=== PATIENT | female | born 1975 | race Caucasian/White ===

== ENCOUNTER 2019-03-06 14:11 | Inpatient (IN) | payer MEDICAID ==
[~2019-03-06] VITALS: Ht 160 cm; Wt 90.3 kg
[2019-03-06 14:17] VITALS: Ht 160 cm; Wt 90.3 kg
--- NOTE | 2019-03-06 14:25 | NUR ---
PT BIB [facility] C/C ABD PAIN X 3 DAYS STS GETTING WORSE TODAY DR COOL AT BEDSIDE TO [facility]
--- NOTE | 2019-03-06 14:34 | NUR ---
PLEASE ENTER FULL NAMES OF PRE SALES NETWORK ENGINEER/RN Patient data collected by (PRE SALES NETWORK ENGINEER):IAN HAMILTON Assessment reviewed and completed by (RN):HUGO BAPTISTE
--- NOTE | 2019-03-06 15:11 | NUR ---
KNOWLEDGE ARCHITECT AT BEDSIDE FOR BLOOD DRAW
--- NOTE | 2019-03-06 15:32 | NUR ---
MED IV FOR NAUSEA & "12"/10 ABD PAIN & "20"/10 HEAD PAIN.
[2019-03-06 15:33] LABS: PLATELET COUNT 343 x10^3mcL (130-400)
[2019-03-06 15:42] LABS: CALCIUM 9.2 mg/dL (8.5-10.1); CARBON DIOXIDE 20.5 mmol/L (21-32); CHLORIDE SERUM 105 mmol/L (98-107); CREATININE SERUM 0.7 mg/dL (0.6-1.0); GFR1 > 60 mL/min; GLUCOSE SERUM 95 mg/dL (74-106); SODIUM SERUM 137 mmol/L (136-145)
[2019-03-06 15:47] LABS: ALKALINE PHOSPHATASE 216 U/L (46-116); ALT/SGPT 102 U/L (14-59); AST/SGOT 41 U/L (15-37); BILIRUBIN TOTAL 0.99 mg/dL (0.20-1.00); TOTAL PROTEIN, SERUM 7.2 g/dL (6.4-8.2)
[2019-03-06 15:53] LABS: ALBUMIN 2.9 g/dL (3.4-5.0)
[2019-03-06 15:59] LABS: BAND NEUTROPHIL 10 % (0-10); BASOPHIL 0 % (0-2); METAMYELOCTE 1 % (0-2); MONOCYTE 7 % (0-7); MYELOCYTE 1 % (0-2); PLATELET MORPHOLOGY PLATELETS NORMAL; SEGMENTED NEUTROPHILS 76 % (37-75); rbc morphology (normal/abnorm) NORMAL (NORMAL)
--- NOTE | 2019-03-06 16:00 | NUR ---
TAKEN TO RADIOLOGY FOR CT
--- NOTE | 2019-03-06 16:17 | NUR ---
BACK FROM CT
--- NOTE | 2019-03-06 16:38 | NUR ---
PT SLEEPING AT THIS TIME
--- NOTE | 2019-03-06 17:27 | NUR ---
STARTED ON IV ATB
--- NOTE | 2019-03-06 17:55 | NUR ---
MED PER ORDER FOR NAUSEA & "20"/10 HEAD PAIN & "12"/10 ABD PAIN.
[2019-03-06 18:20] LABS: PHOSPHOROUS 2.6 mg/dL (2.5-4.9)
[2019-03-06 19:39] VITALS: BP 136/57
--- NOTE | 2019-03-06 19:50 | NUR ---
RECEIVED AND SEEN PT IN BED ASLEEP BUT EASILY AROUSABLE.C/O PAIN ON HER LOWER STOAMCH AREA AND MIGRAINE. MEDICATED NORCO FOR PAIN ORDERED. GIVEN 1L BOLUS ORDERED. V/S WERE STABLE. NO DISTRESS NOTED.IV SITE PATENT AND INTACT. BED IN LOWEST POSITION,CALL LIGHT WITHIN REACH. WILL CONTINUE TO MONITOR.
--- NOTE | 2019-03-06 19:54 | NUR ---
This patient was admmitted at 6:30 pm in Telemetry. Patient presented with chief complaints of frontal migraine and infected pubis which is oozing. Pain level is 10/10 and needs an urgent treatment to reduce the septic shock.VS ARE WITHIN NORMAL LIMITS. Picture was taken and aendorsement was given to the Night Nurse to call Dr. Aguilar and get urgent orders to prevent the progression of the disease, Patient has a history of CERVICAL CANCER , HYSTERECTOMTY, AND HX OF KIDNEY FAILURE.
[2019-03-06 19:56] VITALS: BP 151/96
--- NOTE | 2019-03-06 19:58 | NUR ---
RECEIVED PT FROM ER, PT ADMIT FOR SEVERE SEPSIS, CELLULITIS PUBIS, PT IS A/O X4, VERBAL RESPONSIVE, ABLE TO TELL WHAT SHE NEEDS. C/O HEADACHE 10/10, LUNG SOUND CLEAR BILATERAL, NO COUGH, NO SOB, PT IS ON TELE 13, ST, DENY ANY CHEST PAIN OR DISCOMFORT, BOWEL SOUND PRESENT ALL 4 QUADRANTS, NO DISTENTION. THERE IS ERYTHEM AND OPEN BOIL AT PUBIC AREA, SEROSANGUINEOUS DRAINAGE. PICTURE IS TAKEN AND CULTURE IS COLLECTED. COVERED WITH DRY DRESSING, PEDAL PULSE PRESENT BOTH FEET, NO EDEMA, IV AT RIGHT FA, NO LEAKING, NO INFILTRATION, ALL ADLS ASSIST, ALL NEED MET, CALL LIGHT IN REACH, WILL CONTINUE TO MONITOR.
--- NOTE | 2019-03-06 20:06 | NUR ---
PT C/O PAIN ON HER LOWER STOMACH AREA 05/08. MEDICATED NORCO 7.5/325MG ORDERED.WILL CONTINUE TO MONITOR.
--- NOTE | 2019-03-06 20:14 | NUR ---
PT REFUSED LACTIC ACID REPEAT, PT APPEAR VERY INCORPERATED AT THIS MOMENT. DR. TRINH MADE AWARE, WILL CONTINUE TO MONIOR THE PT.
--- NOTE | 2019-03-06 20:20 | NUR ---
TALKED TO DR. TRINH REGARDING THE OPEN BOIL AT PUBIC AREA. STATE NO WOUND CONSULT NEED AT THIS TIME AND KEEP BOIL DRAINAGE, COVERED WTIH DRY DRESS.
--- NOTE | 2019-03-06 21:07 | NUR ---
DONE 1 LITER BOLUS. V/S WERE STABLE.PT AAOX4. NO SOB NOTED. WILL CONTINUE TO MONITOR.
[2019-03-06 21:08] VITALS: BP 136/85
--- NOTE | 2019-03-06 21:10 | NUR ---
INFUSED 1 LITER BOLUS ORDERED.WILL CONTINUE TO MONITOR.
--- NOTE | 2019-03-06 22:17 | NUR ---
FINISHED 1L BOLUS. TOTAL 2L GIVEN.VS STABLE. PT NO SOB NOTED. WILL CONTINUE TO MONITOR.
[2019-03-06 22:18] VITALS: BP 136/96
--- NOTE | 2019-03-06 22:31 | NUR ---
PT C/O PAIN 04/07. MEDICATED TORADOL 15MG IV ORDERED. WILL CONTINUE TO MONITOR.
[2019-03-06 22:53] LABS: microscopic required? YES; urine erythrocyte NEGATIVE (NEGATIVE)
--- NOTE | 2019-03-06 23:10 | NUR ---
PT REFUSED LACTIC ACID LAB DRAW. DR TRINH MADE AWARE.
[2019-03-06 23:32] LABS: AMPHETAMINE QUAL UR POSITIVE (See below)
--- NOTE | 2019-03-07 04:10 | NUR ---
PT C/O CORDERO 05/08. MEDICATED TYLENOL 650MG PO ORDERED. WILL CONTINUE TO MONITOR.
[2019-03-07 04:37] VITALS: BP 153/93
--- NOTE | 2019-03-07 05:15 | NUR ---
PT ASLEEP. NO SOB NOTED. NO S/S OF PAIN AT THIS TIME. BED IN LOWEST POSITION,CALL LIGHT WITHIN REACH. WILL CONTINUE TO MONITOR.
--- NOTE | 2019-03-07 07:18 | NUR ---
CARE ENDORSED TO DAY NURSE ROGER. ALL QUESTION AND CONCERN WERE ADDRESSED.
--- NOTE | 2019-03-07 07:30 | NUR ---
AAOX4.LUNGS CLEAR.ON ST ON THE MONITOR.IVF NS GOING AT 50 ML/HR INFUSING WELL.PUBIC AREA WITH ERRYTHEMA AND SWELLING.DRAINING SEROUSANGUINOUS FLUID.WITH DRESSING REMOVED.WILL CHANGE DRESSING NEEDED.CALL LIGHT WITHIN REACH.INSTRUCTED TO CALL FOR ANY PAIN/DISCOMFORT.WILL CONTINUE TO MONITOR PT.
--- NOTE | 2019-03-07 08:11 | NUR ---
GAVE NORCO 1 TAB FOR C/O H/A AT 10/10 PAIN SCALE.WILL CONTINUE TO MONITOR PT.
[2019-03-07 09:10] VITALS: BP 135/83
--- NOTE | 2019-03-07 09:11 | NUR ---
WENT TO RECHECK PAIN LEVEL PT SLEEPING COMFORTABLY
--- NOTE | 2019-03-07 09:31 | NUR ---
GAVE TORADOL ORDERED PRN FOR C/O H/A.
--- NOTE | 2019-03-07 10:00 | NUR ---
IV REINSERTED 22 G ON R FA FOR ACCIDENTALLY PULLING OUT IV.
--- NOTE | 2019-03-07 10:01 | NUR ---
WENT TO RECHECK PAIN LEVEL AFTER GIVING TORADOL ORDERED.PT SLEEPING COMFORTABLY NO SIGNS OF PAIN.
--- NOTE | 2019-03-07 12:15 | NUR ---
PT WENT DOWN VIA HOSPITAL BED TO CT FOR CT SCAN OF THE HEAD.
[2019-03-07 13:24] VITALS: BP 127/89
--- NOTE | 2019-03-07 17:00 | NUR ---
PT ASKING FOR DILAUDID .CLAIMS WANTED TO JUST SLEEP ALTHROUGHOUT NOT WANTING TO BE DISTURBED.PAGED .
[2019-03-07 17:14] VITALS: BP 145/96
--- NOTE | 2019-03-07 18:10 | NUR ---
ALSO INFORMED PT ALSO REFUSED AM LABS.
--- NOTE | 2019-03-07 18:10 | NUR ---
INFORMED COVERING FOR ABOUT PT ASKING FOR DILAUDID.DOES NOT WANT MORPHINE.
--- NOTE | 2019-03-07 18:58 | NUR ---
NO SIGNIFICANT CHANGE NOTED.WILL ENDORSE TO NEXT SHIFT.
--- NOTE | 2019-03-07 20:00 | NUR ---
PT A/A/O X4. DENIES DIZZINESS AND C/O HEADACHE. BREATH SOUNDS CLEAR. BREATHING EVEN AND UNLABORED ON ROOM AIR. DENIES CHEST PAIN AND PRESSURE. BOWEL SOUNDS ACTIVE. NO C/O N/V AND ABD PAIN. WOUND ON THE MONS PUBIS WITH DRESSING INTACT WITH SEROSANGUENEOUS DRAINAGE NOTED. IV INTACT ON THE RIGHT FOREARM INFUSING WITH NS AT 50 ML/HR. MADE PT COMFORTABLE. PLACED CALL LIGHT WITH IN REACH. WILL CONTINUE TO MONITOR.
--- NOTE | 2019-03-07 20:35 | NUR ---
PT C/O PAIN ON THE MONS PUBIS AND HEADACHE. GAVE PT TORADOL IVP. PT TOLERATED IT WELL. WILL CONTINUE TO MONITOR.
[2019-03-07 21:27] VITALS: BP 145/93
--- NOTE | 2019-03-07 21:45 | NUR ---
PT C/O PAIN NOT GOING AWAY AND PAIN MEDICATION NOT WORKING. GAVE PT MORPHINE IVP PT TOLERATED IT WELL. WILL CONTINUE TO MONITOR.
[2019-03-08] VITALS (8 sets, daily range): BP systolic 136–168; BP diastolic 93–111
--- NOTE | 2019-03-08 00:33 | NUR ---
PT RESTING WITH EYES CLOSED. NO DISTRESS AND DISCOMFORT NOTED. WILL CONTINUE TO MONITOR.
--- NOTE | 2019-03-08 01:35 | NUR ---
RECEIVED REPORT FROM LIBERTY TAM. PT RESTING WITH EYES CLOSED. NO SOB ON ROOM AIR. BREATHING EVEN AND UNLABORED. NO DISTRESS NOTED. CALL LIGHT WITHIN REACH. WILL CONTINUE TO MONITOR.
--- NOTE | 2019-03-08 07:10 | NUR ---
RECEIVED PT FROM LAST RN. PT RESTING IN BED WITH BOTH EYES CLOSED. NO S/S OF ACUTE DISTRESS. NO S/S OF PAIN. SINUS TACH ON TELE, HR 107. CONTACT PRECAUTIONS IN PLACE. BED IN LOW POSITION. CALL LIGHT WITHIN REACH. WILL CONT. TO MONITOR.
--- NOTE | 2019-03-08 07:30 | NUR ---
PT RESTED AT INTERVALS DURING SHIFT. NO SOB ON ROOM AIR. ON AND OFF C/O PAIN TO PUBIC AREA AND HEADACHE. MEDICATED PER ORDER. REFUSED LAB DRAW AND WOUND PICTURE. DR WORRELL MADE AWARE. SAFETY MEASURES MAINTAINED. CALL LIGHT WITHIN REACH. ENDORSED CONTINUITY OF CARE TO DAY SHIFT RN.
--- NOTE | 2019-03-08 07:51 | NUR ---
PT REFUSED AM LABS, INCLUDING AM VANCO TROUGH, EXPLAINED TO PT PURPOSE OF LABS/MEDS/TREATMENT, RISKS/BENEFITS, PT VERBALIZED UNDERSTANDING. AGGRAVATED AND CURSING AT LAB TECHS AND RN, PT STATES, "I DON'T GIVE A FUCK, I'M NOT DOING IT" STATES, "I JUST WANT SOMETHING TO PUT ME TO SLEEP" PT SITTING AT SIDE OF BED. NO S/S OF ACUTE DISTRESS. DR. WORRELL AWARE OF PT REFUSING LABS. WILL CONTINUE TO MONITOR.
--- NOTE | 2019-03-08 11:26 | NUR ---
PT RESTING IN BED WITH BOTH EYES CLOSED. MUNIRA SCHEDULED ONE TIME DOSE PER DR. WORRELL/DR. AVENDAÑO. WILL NOTIFY HOLDING MEDICATION.
--- NOTE | 2019-03-08 12:40 | NUR ---
RESTING IN BED WITH BOTH EYES CLOSED. NO S/S OF ACUTE DISTRESS. NO S/S OF PAIN. CALM AT THIS TIME. EASILY AROUSABLE TO VERBAL STIMULI. NO SOB ON ROOM AIR. BED IN LOW POSITION. CALL LIGHT WITHIN REACH. WILL CONTINUE TO MONITOR.
--- NOTE | 2019-03-08 13:20 | NUR ---
WOUND TO PUBIS DRAINING SANGUINOUS/BROWN/YELLOW DISCHARGE, MODERATE SATURATED DRESSING. WOUND CLEANSED WITH NS, GENTLY PATTED DRY, NEW DRESSING APPLIED. ERYTHEMA NOTED SURROUNDING WOUND TO WAISTLINE. WOUND MEASURES 1CM 7 OCLOCK TO 1 O CLOCK. WIDTH 0.2 CENTIMETERS. TENDER TO PALPATION. TOLERATED DRESSING CHANGE WELL. NO S/S OF ACUTE DISTRESS. CONTACT PRECAUTIONS IN PLACE. PT CALM/COOPERATIVE AT THIS TIME. NO SOB ON ROOM AIR. NO CHEST PAIN. IV WNL. BED IN LOW POSITION. CALL LIGHT WITHIN REACH. WILL CONTINUE TO MONITOR.
--- NOTE | 2019-03-08 13:59 | NUR ---
WOUND CARE EVALUATION NOTE: PT IS SEEN FOR WOUND CONSULT WITH REFUSAL OF MEAASURE , WOUND BED IS RED, SMALL AMOUNT OF SANGINOUS DRAINAGE, NO ODOR, JOSE WOUND SKIN INTACT, ERYTHEMA, AND WARM WITH SWELLING TO TOUCH, PAIN 5/10. PT. IS CRYING AND TEXTING , OFFER TO RETURN LATER TO FINISH ASSESSMENT, PT STATE" DON'T WORRY , I AM OK. PLEASE DON'T TOUCH THE WOUND." PLAN OF CARE DISCUSSED WITH PT. AND PRIMARY RN. PT. VERBALIZES UNDERSTANDING. RECOMMENDATION: -CLEANSE CELLULITIS OPEN WOUND WITH WOUND CARE SOLUTION, PAT DRY, APPLY SILVASORB GEL AND COVER WITH DRY DRESSING QD AND PRN IF SOILING
[2019-03-08 14:41] LABS: PLATELET COUNT 398 x10^3mcL (130-400); RED CELL DISTRIBUTION WIDTH 13.8 % (11.5-14.5)
[2019-03-08 14:44] LABS: CALCIUM 8.7 mg/dL (8.5-10.1); CHLORIDE SERUM 103 mmol/L (98-107); CREATININE SERUM 0.7 mg/dL (0.6-1.0); GFR1 > 60 mL/min; GLUCOSE SERUM 142 mg/dL (74-106); SODIUM SERUM 139 mmol/L (136-145)
[2019-03-08 14:52] LABS: POTASSIUM SERUM 2.9 mmol/L (3.5-5.1)
--- NOTE | 2019-03-08 14:55 | NUR ---
K 2.9, DR. WORRELL AWARE. NO S/S OF ACUTE DISTRESS, NO COMPLAINT OF PAIN. NO CHEST PAIN. NSR ON TELE, HR 92. RESTING IN BED WITH BOTH EYES CLOSED. NEW ORDERS ENTERED BY PHYSICIAN FOR POTASSIUM REPLACEMENT. SEE NOV. WBC 22.[address] WORRELL AWARE. WILL CONTINUE TO MONITOR.
--- NOTE | 2019-03-08 14:59 | NUR ---
Discount pharmacy card and list to low cost medical clinics given to patient by Max.
[2019-03-08 15:25] LABS: BAND NEUTROPHIL 5 % (0-10); MONOCYTE 4 % (0-7); SEGMENTED NEUTROPHILS 81 % (37-75)
[2019-03-08 15:26] LABS: BASOPHIL 0 % (0-2); PLATELET MORPHOLOGY PLATELETS NORMAL; rbc morphology (normal/abnorm) NORMAL (NORMAL)
--- NOTE | 2019-03-08 18:10 | NUR ---
PT AMBULATORY TO RESTROOM, GAIT STEADY. COMPLAINED OF PAIN TO PELVIS/CORDERO. RATES /. GIVEN PAIN MED, SEE MAR. PAIN TO PELVIS WORSE WITH AMBULATION, BURNING/ACHING, CONTINUOUS. CORDERO CONTINUOUS, ACHING, WORSE WITH LIGHT. AA/OX4. NO SOB ON ROOM AIR. DRESSING TO PELVIS CDI. NO CHEST PAIN. RECEIVING IV K RIDER. IV WNL, NO REDNESS, NO SWELLING, NO INFILTRATION. PT CALM/COOPERATIVE AT THIS TIME. BED IN LOW POSITION. CALL LIGHT WITHIN REACH. WILL ENDORSE TO ONCOMING SHIFT.
--- NOTE | 2019-03-08 18:45 | NUR ---
PT RESTING IN BED WITH BOTH EYES CLOSED. NO S/S OF ACUTE DISTRESS. NO S/S OF PAIN. WILL ENDORSE TO ONCOMING SHIFT.
--- NOTE | 2019-03-08 19:30 | NUR ---
RECIEVED PT FROM DAY SHIFT RN. PT RESTING WITH EYES CLOSED, NO SIGNS OF DISTRESS NOTED. BREATHING EVEN AND UNLABORED ON RA WITH NO SOB NOTED. TELE # [id number] SR HR 94. IV RFA PATENT, INFUSING WELL WITH NO SIGNS OF INFILTRATION NOTED. NO SIGNS OF ACUTE DISTRESS NOTED AT THIS TIME. CALL BUTTON WITHIN REACH. WILL CONTINUE TO MONITOR.
--- NOTE | 2019-03-08 20:00 | NUR ---
WOUND CARE DRESSING CHANGE AT THIS TIME.
--- NOTE | 2019-03-08 21:04 | NUR ---
PT REPORTED HAVING ABD PAIN, ADMINISTER PAIN MEDICATION PER EMAR. WILL CONTINUE TO MONITOR.
--- NOTE | 2019-03-08 23:49 | NUR ---
ASSISTED PT BY BUILDING MAINTENANCE SUPERVISOR TO GO TO THE BATHROOM. PT BACK IN BED, NO SIGNS OF DISTRESS NOTED. DRESSING CHANGED AT THIS TIME. PT DENIES ANY HEADACHE AT THIS TIME. CALL BUTTON WITHIN REACH. CONTACT ISOLATION IN PLACE. WILL CONTINUE TO MONITOR.
--- NOTE | 2019-03-09 03:48 | NUR ---
PT RESTING, BREATHING EVEN AND UNLABORED WITH NO SOB NOTED. CALL BUTTON WITHIN REACH. WILL MONITOR.
--- NOTE | 2019-03-09 05:27 | NUR ---
PT SLEPT MOST OF THE NIGHT WITH NO SIGNS OF DISTRESS NOTED. DRESSING CHANGED X2, WOUND WITH BLOOD DRAINAGE NO BLOOD CLOTS NOTED. IV PATENT, SL. MEDICATED PER EMAR. PT AMBULATES WITH BRP. NO SIGNS OF DISTRESS NOTED. CALL BUTTON WITHIN REACH. WILL CONTINUE TO MONITOR AND ENDORSE CARE TO DAY SHIFT RN.
--- NOTE | 2019-03-09 06:19 | NUR ---
PT REPORTED HAVING HEADACHE, REQUESTING FOR TORADOL. MEDICATED PER EMAR. WILL MONITOR.
--- NOTE | 2019-03-09 06:21 | NUR ---
PT REFUSED TO HAVE LABS DRAWN THIS MORNING. PER PHEBlairBOTOMIST WILL TRY AGAIN.
[2019-03-09 06:29] VITALS: BP 103/61
--- NOTE | 2019-03-09 07:20 | NUR ---
RECEIVED PATIENT FROM CODING ANALYST NURSE. PATIENT IS AWAKE, ALERT AND ORIENTED. TELE#13, SR, HR 89. ON ROOM AIR, BREATHING EVEN AND UNLABORED. C/O HEADACHE, MEDICATED BY CODING ANALYST NURSE WITH TORADOL. IV NOTED TO RFA, SALINE LOCKED, NO S/S ERYTHEMA AT SITE. CALL LIGHT WITHIN EASY REACH. WILL CONTINUE PLAN OF CARE.
--- NOTE | 2019-03-09 07:27 | NUR ---
PT AWAKE, NO DISTRESS NOTED ENDORSED CARE TO DAY SHIFT RN, ALL QUESTIONS ADDRESSED.
--- NOTE | 2019-03-09 08:02 | NUR ---
PATIENT REFUSING LABS AT THIS TIME. SPOKE WITH PATIENT, AGREES TO DRAW LABS. PATIENT APPEARS ANGRY AND TENSE. EDUCATED ON THE PLAN OF CARE AND INDICATION FOR LABWORK.
[2019-03-09 08:09] VITALS: BP 135/83
[2019-03-09 08:29] LABS: BASOPHIL % 0.1 % (0-2); RED CELL DISTRIBUTION WIDTH 13.4 % (11.5-14.5)
[2019-03-09 08:30] LABS: PLATELET COUNT 448 x10^3mcL (130-400)
[2019-03-09 08:38] LABS: CALCIUM 8.9 mg/dL (8.5-10.1); CARBON DIOXIDE 26.3 mmol/L (21-32); CHLORIDE SERUM 104 mmol/L (98-107); CREATININE SERUM 0.7 mg/dL (0.6-1.0); GFR1 > 60 mL/min; GLUCOSE SERUM 99 mg/dL (74-106); POTASSIUM SERUM 3.2 mmol/L (3.5-5.1); SODIUM SERUM 140 mmol/L (136-145)
--- NOTE | 2019-03-09 10:58 | NUR ---
PATIENT IV SITE BECAME PAINFUL AT THIS TIME. IV SITE ASSESSED AND IV ABX STOPPED. IV SITE INFILTRATED TO BE REMOVED. PATIENT REFUSING FOR NEW IV TO BE PLACED.
--- NOTE | 2019-03-09 11:26 | NUR ---
DRESSING CHANGED AT THIS TIME. PURULENT AND SANGUINOUS DRAINAGE LEAKING FROM OPEN PUBIC WOUND. DRIED. CLEANSED WITH WOUND SUPERVISOR ALTERATION WORKROOM, DRIED, SILVASORB APPLIED AND DRESSING REAPPLIED AT THIS TIME. PATIENT TOLERATED WELL.
[2019-03-09 11:42] VITALS: BP 147/107
--- NOTE | 2019-03-09 11:59 | NUR ---
ATTEMPTED TO OBTAIN IV ACCESS AT THIS TIME. PATIENT STATES "TAKE IT OUT TAKE IT OUT." IV SITE REMOVED DURING ACCESS. PATIENT REFUSING ANY FURTHER IV PLACEMENT AT THIS TIME. CHARGE NURSE, SHANTELLE NOTIFIED.
--- NOTE | 2019-03-09 13:16 | NUR ---
PATIENT CONTINUES TO REFUSE IV ACCESS AT THIS TIME.
--- NOTE | 2019-03-09 14:04 | NUR ---
REPORT GIVEN TO GUILLE MOSER, TO ASSUME CONTINUITY OF CARE.
== END 2019-03-09 14:29 | disposition left against medical advice (07) | DRG 720 ==
LOC: ED 14:11 → DU 17:24
PROVIDERS: Emergency Medicine; ADMIT Family Medicine
DX: A41.9 Sepsis, unspecified organism (principal); N17.0 Acute kidney failure with tubular necrosis; E44.0 Moderate protein-calorie malnutrition; I77.4 Celiac artery compression syndrome; I42.2 Other hypertrophic cardiomyopathy; N73.2 Unspecified parametritis and pelvic cellulitis; B95.62 Methicillin resistant Staphylococcus aureus infection as the cause of diseases classified elsewhere; G43.909 Migraine, unspecified, not intractable, without status migrainosus; F17.210 Nicotine dependence, cigarettes, uncomplicated; Z68.28 Body mass index [BMI] 28.0-28.9, adult; Z85.41 Personal history of malignant neoplasm of cervix uteri; Z16.24 Resistance to multiple antibiotics
CPT/HCPCS: G0378; J1885; J1956; J2270; J2405; J2765; J3370; J3480; J7030; Q0092; Q9967